=== PATIENT | female | born 1995 | race Two or more races ===

== ENCOUNTER 2016-12-28 17:37 | Inpatient (IN) | payer OTHER ==
[2016-12-28] VITALS (20 sets, daily range): BP systolic 117–144; BP diastolic 57–89
[~2016-12-28] VITALS: Ht 160 cm; Wt 116.5 kg
[2016-12-28 18:59] LABS: EOSINOPHIL (%) 1.8 % (0-5); EOSINOPHIL COUNT 0.1 K/uL (0-0.3); IMMATURE GRANULOCYTE (%) 0.5 % (0.0-0.7); INSTRUMENT ABS NEUTROPHIL CT 4.5 K/uL; LYMPHOCYTE COUNT 2.3 K/uL (1.0-2.8); MCH 26.4 PG (29.0-34.0); MCHC 31.6 G/DL (30.0-36.0); MCV 83.8 FL (83-99); MEAN PLAT.VOLUME 9.6 uM^3 (9.5-12.4); MONOCYTE COUNT 0.7 K/uL (0-0.8); NEUTROPHIL (%) 59.1 % (45-76); NEUTROPHIL COUNT 4.5 K/uL (1.8-6.4); PLATELET COUNT 273 K/uL (156-360); RBC DIS.WIDTH-CV 14.7 % (11.8-14.6); RBC DIS.WIDTH-SD 44.5 % (39-53); RED BLOOD COUNT 3.82 M/uL (3.80-5.20); WHITE BLOOD COUNT 7.6 K/uL (4.1-10.2)
[2016-12-29] VITALS (24 sets, daily range): BP systolic 98–156; BP diastolic 50–88
[2016-12-29] MEDS ORDERED: IBUPROFEN800 MG PO (15:11)
[2016-12-30] MEDS ORDERED: ZANTAC150 MG PO (00:26)
[2016-12-30] MEDS ORDERED: VENTOLIN HFA18 GM IH (00:27)
[2016-12-30] MEDS ORDERED: PRENATAL TABLE1 EAC3 PO (00:28)
[2016-12-30 15:29] VITALS: BP 133/60
[2016-12-30 22:44] VITALS: BP 108/58
[2016-12-31 07:45] VITALS: BP 110/70
[2016-12-31] MEDS ORDERED: PRENATAL TABLE1 EAC3 PO (09:15)
[2016-12-31 15:23] VITALS: BP 98/53
== END 2016-12-31 19:30 | disposition home or self-care (01) | DRG 775 ==
LOC: LDRP-OP 17:37 → 2WEST 17:38 → LDRP-OP 01-26 10:50
PROVIDERS: Midwife
DX: O99.214 Obesity complicating childbirth (principal); O99.02 Anemia complicating childbirth; Z3A.40 40 weeks gestation of pregnancy; Z37.0 Single live birth; Z68.41 Body mass index [BMI] 40.0-44.9, adult; O76 Abnormality in fetal heart rate and rhythm complicating labor and delivery; O70.0 First degree perineal laceration during delivery; O69.1XX0 Labor and delivery complicated by cord around neck, with compression, not applicable or unspecified
CPT/HCPCS: 85025; C1755; G0378; J0595; J2405; J3010; J7120

== ENCOUNTER 2017-06-22 11:22 | Emergency (ER) | payer OTHER ==
[~2017-06-22] VITALS: Ht 160 cm; Wt 109.6 kg
[~2017-06-22 11:22] MED LIST: IBUPROFEN800 MG PO; PRENATAL TABLE1 EAC3 PO; VENTOLIN HFA18 GM IH; ZANTAC150 MG PO
[2017-06-22] MEDS ORDERED: VALIUM2 MG PO (16:25)
[2017-06-22] MEDS ORDERED: MOTRIN800 MG PO (16:25)
[2017-06-22] MEDS ORDERED: FIORICET 50-301 EACH PO (16:25)
[2017-06-22 16:42] VITALS: BP 107/72
== END 2017-06-22 16:45 | disposition home or self-care (01) ==
LOC: EME 11:22
DX: G44.209 Tension-type headache, unspecified, not intractable (principal); M62.838 Other muscle spasm; Z88.0 Allergy status to penicillin
CPT/HCPCS: 99281; 99284; J1885